=== PATIENT | female | born 1955 | race Caucasian/White ===

== ENCOUNTER 2018-03-16 06:26 | Observation (INO) ==
[2018-03-16] MEDS ORDERED: Lidocaine -MPF 1% 2 ML VIAL ID ONE (06:49)
[2018-03-16] MEDS ORDERED: Clindamycin 900 MG/50 ML 900 MG/50 ML IV.SOLN IVPB ONE ×2 (06:49→06:59)
[2018-03-16] MEDS ORDERED: Ringers Solution, Lactated 1,000 ML IVC SCH (07:00)
[2018-03-16] MEDS ORDERED: Famotidine 20 MG/2 ML VIAL IVP ONE (07:10)
[2018-03-16] MEDS ORDERED: Pregabalin 75 MG CAPSULE PO ONE (07:10)
[2018-03-16] MEDS ORDERED: Acetaminophen IV 1,000 MG/100 ML INFUS..BTL IVPB ONE ×4 (07:10→20:30)
[2018-03-16] MEDS ORDERED: Metoclopramide 10 MG/2 ML VIAL IVP ONE (07:10)
--- NOTE | 2018-03-16 07:13 | Anesthesia Evaluation PreOp ---
Date of Encounter: 03/16/18 Time of Encounter: 07:06 - Past History Planned Operation: Total Thyroidectomy Cardiac History: HTN, Hyperlipidemia Pulmonary History: Denies Any Significant HX [employer] History: TIA (dx 2018 maintained on Plavix) Other Medical History: Thyroid (Thyroid nodules by Thryoid U/S - Significant thyromegaly. There is diffuse heterogeneity of the gland. Bilateral solid thyroid nodules, the largest in the left lobe measuring 2.8 cm.), GERD (Hiatal Hernia) Anesthesia History: No Prior Anesthetic Complications, Past Anesthesia (Hyster, EGD/Colonoscopy) Alcohol Use: none Drug use: none Medications and Allergies Clopidogrel [Plavix] 75 mg PO DAILY 03/16/18 [History] Ezetimibe [Zetia] 10 mg PO DAILY 03/16/18 [History] 3 Allergy/AdvReac Type Severity Reaction Status Date / Time Tetracycline Allergy Rash Verified 02/15/18 00:06 niacin AdvReac Flushing Verified 02/15/18 00:06 - Meds/Allergy Pre-op Review Medications Reviewed: Yes Allergies Reviewed: Yes Beta Blockers on Current Med List: No Anesthesia Results - Labs O2 Sat Height 1.6 m Height 1.6 m Height 1.6 m Weight 92.079 kg Weight 92.079 kg Weight 92.079 kg O2 Sat by Pulse Oximetry 96 O2 Sat by Pulse Oximetry 96 Vital Signs Temp Pulse Resp BP Pulse Ox 98.1 F 76 18 139/88 96 03/16/18 06:47 03/16/18 06:47 03/16/18 06:47 03/16/18 06:47 03/16/18 06:47 - Imaging EKG: image reviewed (60bpm SINUS RHYTHM Electronically Signed On 03-15-2018 7:23: 36 EDT by Bryn Dickerson) Anesthesia Exam O2 Sat Height 1.6 m Height 1.6 m Height 1.6 m Weight 92.079 kg Weight 92.079 kg Weight 92.079 kg O2 Sat by Pulse Oximetry 96 O2 Sat by Pulse Oximetry 96 Vital Signs Temp Pulse Resp BP Pulse Ox 98.1 F 76 18 139/88 96 03/16/18 06:47 03/16/18 06:47 03/16/18 06:47 03/16/18 06:47 03/16/18 06:47 Height: 5'3" Weight: 203# BMI = 36 NPO (# of Hours): MNOc - HEENT Pupil (Motor): Pupils equal, EOMI Mallampati: II Teeth: Normal Oral Opening: Greater than 3 - [employer] LOC: Oriented [employer] Motor: Normal RUE, Normal LUE, Normal RLE, Normal LLE, Normal Face [employer] Sensory: Normal: RUE, LUE, RLE, LLE, Face - Cardiac Rhythm: Regular Murmur: None - Pulmonary Breath Sounds: bilateral Clear Respiratory Effort: Symmetrical Anesthesia Assess/Plan ASA Score: 3 (Thryoid nodules, HTN, Chol)
[2018-03-16] MEDS ORDERED: cloNIDine HCl 0.1 MG TABLET PO ONE (07:15)
[2018-03-16] MEDS ORDERED: *HR* Remifentanil 2 MG VIAL IVP ONE ×2 (07:16→10:28)
[2018-03-16] MEDS ORDERED: Bacitracin/PolymyxinB OINT 14.17 GM TUBE TP ONE (07:16)
[2018-03-16] MEDS ORDERED: Lidocaine/EPI 1:100k 1% 50 ML VIAL INFILT ONE (07:16)
[2018-03-16] MEDS ORDERED: *HR* FentaNYL (PF) 100 MCG/2 ML VIAL ONE (07:17)
[2018-03-16] MEDS ORDERED: *HR* Midazolam HCl 2 MG/2 ML VIAL ONE (07:17)
[2018-03-16] MEDS ORDERED: *HR* Propofol 200 MG/20 ML VIAL IVP ONE (07:17)
[2018-03-16] MEDS ORDERED: Lacri-Lube 3.5 GM TUBE ONE (07:19)
[2018-03-16] MEDS ORDERED: *HR* Succinylcholine 200 MG/10 ML VIAL IVP ONE (07:19)
[2018-03-16] MEDS ORDERED: Dexamethasone 4 MG/ML VIAL ONE ×2 (07:19→13:26)
[2018-03-16] MEDS ORDERED: Ondansetron 4 MG/2 ML VIAL ONE (07:19)
[2018-03-16] MEDS ORDERED: Lidocaine -MPF 2% 2 ML VIAL ONE (07:19)
[2018-03-16] MEDS ORDERED: Lidocaine -MPF 4% 5 ML AMPUL ONE (07:19)
[2018-03-16] MEDS ORDERED: *HR* Phenylephrine 10 MG/ML VIAL ONE (07:23)
--- NOTE | 2018-03-16 07:33 | History & Physical Report ---
Date of Encounter: 03/16/18 Time of Encounter: 07:30 24 Hour HP Update - Instructions Instructions: If the History and Physical is less than 30 days old and was completed prior to A.M. admission and or procedure and has NOT been updated on calendar day of procedure please complete this update prior to performing procedure. - Update Patient reports changes in Medical Condition: No Changes in examination, assessment, or condition: No Changes in Medication: No Preop tests/diagnostics Reviewed: Yes Pre-Op MRSA Screen: Negative Surgery Remains Indicated: Yes Consent for Planned Operative Procedure(s) Verified: Yes - Pre-Operative Checklist Preoperative Checklist Indicated: Yes Prophylactic Antibiotic Ordered: Yes Home Medications Include Beta Rox: No Beta Rox Taken Today (Day of Surgery): No Beta Rox Taken Yesterday (Day Prior to Surgery): No Is VTE Prophylaxis Indicated?: Yes
[2018-03-16] MEDS ORDERED: Ondansetron 4 MG/2 ML VIAL IVP ONE (09:39)
[2018-03-16] MEDS ORDERED: *HR* Morphine 2 MG/ML SYRINGE IVP PRN (09:39)
[2018-03-16] MEDS ORDERED: *HR* Labetalol 20 MG/4 ML SYRINGE IVP PRN (09:39)
[2018-03-16] MEDS ORDERED: *HR* Promethazine 25 MG/ML VIAL IVP PRN (09:39)
[2018-03-16] MEDS ORDERED: Albumin Human 5% 25.0 GM/500 ML VIAL ONE (10:55)
--- NOTE | 2018-03-16 12:37 | Operative Note ---
Date of procedure: 03/16/18 Pre-op diagnosis: Multinodular goiter Post-op diagnosis: same Procedure: Bilateral total thyroidectomy with cranial nerve monitoring of vocal cords First Asst. Berna Taveras, second assist Dr. Currie Complications: None Anesthesia: GETA Surgeon: Juan Orozco Was there an assignment desk assistant present: No Estimated blood loss (cc): 30 IV fluids (cc): 3,000 (2500 mL crystalloids and 500 mL colloid) Urine output (cc): 1,700 Specimen: Right and left thyroid lobes Condition: stable Disposition: PACU Procedure in Detail: After patient had been counseled for bilateral total thyroidectomy with risks of pain bleeding infection scar possible injury to laryngeal nerve possible injury to parathyroid glands were explained and all questions answered and consent was obtained patient was taken back to the operating room. In the operating room timeout was taken by the operating team confirmed patient at indication procedure and site per protocol. She was given medicines per anesthesiology. The IV Tylenol and Decadron and clindamycin were given prior to starting the incision general endotracheal anesthesia was administered by anesthesiology using the NIMM endotracheal tube. Grounding electrodes were placed within each shoulder in sterile fashion and the electrodes were connected to the NIMM monitoring system by the equipment dental sales representative. Proper monitoring of the vocal cords was confirmed. Shoulder roll was placed head of bed was elevated approximately 20 degrees and plan marking incision was made over the anterior neck approximately 3 fingerbreadths above the clavicles. This was slightly higher then the usual 2 fingerbreadths because of the large size of the thyroid gland measuring approximately 12 cm planned incision was 7 cm in length and was made within a natural skin crease. The skin of the neck was prepped with alcohol swabs and then the skin subcutaneous tissue and deeper tissue was injected with 1% Xylocaine with 1-200,000 epinephrine total of 15 mL was used. Patient was then prepped and draped in usual sterile fashion. Incision was made through the skin and subcutaneous tissue with a #15 scalpel and carried down through the subcutaneous tissue and platysma muscle layer with Bovie cautery obtaining hemostasis in the process. A subplatysmal flap was raised superiorly to the hyoid, inferiorly to the sternal notch and clavicles, laterally to the anterior border of the SCM muscle. Retracting sutures were used for the superior flap using 2-0 silk suture and fixing the sutured to the drapes with a hemostat. Remaining portion of retraction throughout the case was with [employer] retractors and other retractors. Strap muscles were then divided in midline with Bovie cautery and then strap muscles were dissected off the anterior thyroid gland on the left dissection then of the lateral superior and inferior poles was done with combination of blunt and sharp dissection. Bipolar cautery and Harmonic scalpel was used in the process also superior pole vessels were isolated and then tied with 2-0 silk suture and ligated with Harmonic scalpel inferior thyroid vessels were done in a similar fashion. The isthmus was then divided with Harmonic scalpel the thyroid gland was then mobilized on the left and retracted out of the depth of the surgical bed with blunt dissection and the recurrent laryngeal nerve was identified and isolated and traced into the larynx protecting the nerve through the process and identifying it with the NIMM stimulating probe. Bipolar cautery was used for hemostasis around the nerve. The parathyroid glands were also identified and retracted away from the gland preserving the vascularity. 2 of whom were isolated and had good color/vascularity after the retraction was complete thyroid gland was transected at Ankit's ligament and removed from the surgical bed. Marking stitch was placed in the isthmus and the gland was examined no parathyroid gland was noted to be within the dissected specimen that was to be handed off the field there were multiple nodules in the gland largest being and 3 cm. Size of gland after removal and devascularization was 12 cm x 7 cm x 7 cm specimen was handed off the field for permanent pathological evaluation. Wound was irrigated copiously with saline while protecting the nerve with 4 x 4 gauze applied over the nerve while this was being done is was also placed over the parathyroid glands. Valsalva confirmed hemostasis. Right lobe was then removed first dissecting the isthmus over from the trachea then dissecting the strap muscles off the anterior thyroid gland then dissected in the inferior superior and lateral lobes. Again blunt and sharp dissection and bipolar and Harmonic scalpel was used for hemostasis to the process of the inferior and superior thyroid vessels were isolated and tied with 2-0 silk suture, and ligated with Harmonic scalpel between the sutures. The right lobe was mobilized out of the surgical bed and the recurrent laryngeal nerve was found on the posterior aspect as well as parathyroid glands were dissected and preserved into the larynx leaving the parathyroid glands intact with good vascularity again two parathyroid glands were confirmed. , of note the entire procedure was done with loupe magnification glasses on the operating surgeon myself , the nerve was confirmed with use of the NIMM stimulating probe , the thyroid lobe was transected at the isthmus and removed from the surgical bed. The right lobe was ended off the field after examination revealed a 12 cm x 7 cm x 7 cm size with multiple large nodules and the isthmus was marked with a marking stitch. The surgical bed was then irrigated with saline using gauze to protect the nerve and parathyroid glands when suction was applied. Valsalva was given by anesthesia and hemostasis was confirmed. A #15 round Blakes VERÓNICA drain was placed into the surgical bed on both right and left sides through a separate stab incision and fixed to the skin with 3-0 silk suture. Gelfoam was placed over the nerve nerve and parathyroid glands on each side and then FloSeal applied within the surgical bed. Wound was closed in a layered fashion using 3-0 Vicryl running suture for the strap muscles in the midline and then 3- 0 Vicryl running suture for strap muscles and then interrupted 4-0 Vicryl undyed for the subcutaneous and 30 Quill suture used for the subcuticular stitch. Mastisol Steri-Strips were applied over the wound a sterile drain dressing was applied after Neosporin ointment applied on the exit site of drain and then a rolled towel gauze was used for covering the neck wound procedure being completed the patient was lightened from anesthesia and bilateral confirmation of vocal cord mobility was confirmed on theNIMM monitoring system and the patient was then completely extubated. Of note a Baxter was placed at the beginning of the case and UA with cultures were taken at time of placement given patient's history of multiple recurrent UTIs. Once the patient was extubated she was transferred to the PACU in stable condition with normal sounding voice noted in the PACU
[2018-03-16 13:01] LABS: Hematocrit 41.3 % (35.3-44.9); Hemoglobin 13.5 g/dL (11.5-15.4)
[2018-03-16] MEDS ORDERED: Acetaminophen IV 1,000 MG/100 ML INFUS..BTL ONE (13:26)
[2018-03-16] MEDS ORDERED: Dexamethasone 4 MG/ML VIAL IVP ONE (13:28)
[2018-03-16 13:41] LABS: Albumin 4.4 g/dL (3.5-5.7); Albumin/Globulin Ratio 1.8 (1.1-2.2); Calcium 9.2 mg/dL (8.6-10.3); Globulin 2.5 g/dL (2.4-3.5); Phosphorous 2.8 mg/dL (2.7-4.5); Total Protein 6.9 g/dL (6.4-8.9)
--- NOTE | 2018-03-16 14:10 | Anesthesia Evaluation Post Op ---
Date of Encounter: 03/16/18 Time of Encounter: 14:09 - Vital Signs Vital Signs: Last Vital Signs Temp 99.1 F 03/16/18 14:00 Pulse 72 03/16/18 14:00 Resp 14 03/16/18 14:00 BP 137/85 03/16/18 14:00 Pulse Ox 97 03/16/18 14:00 - Lungs Lungs: Clear Ascult./Percussion - Airway Airway: Non-obstructed - Cardiovascular Regular Rate - Mental Status Mental Status: Alert & Oriented, Answers Appropriately - Pain Pain Scale: 1 - Nausea Vomiting Nausea Vomiting: Responds to treatment with IV Meds - Hydration Hydration: Ice chips - Discharge PostOp Status: Transfer Patient to floor
[2018-03-16] MEDS ORDERED: Naloxone 0.4 MG/ML INJ IVP PRN (14:43)
[2018-03-16] MEDS ORDERED: Ondansetron 4 MG/2 ML VIAL IVP PRN (14:43)
[2018-03-16] MEDS ORDERED: *HR* OxyCODONE Immed Rel 5 MG TABLET PO PRN ×2 (14:43)
[2018-03-16] MEDS: Dexamethasone 10 MG/ML VIAL IVP SCH ×2 (15:40→22:01)
[2018-03-16] MEDS: D5% in 0.45% NACL 1,000 ML IVC SCH (15:45)
[2018-03-16] MEDS: Clindamycin 600 MG/50 ML 600 MG/50 ML IV.SOLN IVPB SCH ×2 (15:46→23:36)
[2018-03-16 18:19] LABS: Hematocrit 40.2 % (35.3-44.9); Hemoglobin 13.2 g/dL (11.5-15.4)
[2018-03-16 18:41] LABS: Albumin 4.3 g/dL (3.5-5.7); Magnesium 2.1 mg/dL (1.6-2.6)
[2018-03-16 18:42] LABS: Phosphorous 3.2 mg/dL (2.7-4.5); Total Protein 6.9 g/dL (6.4-8.9)
[2018-03-17] MEDS: D5% in 0.45% NACL 1,000 ML IVC SCH (05:48)
[2018-03-17] MEDS: Dexamethasone 10 MG/ML VIAL IVP SCH ×2 (05:48→16:36)
[2018-03-17 06:09] LABS: Hematocrit 39.4 % (35.3-44.9); Hemoglobin 12.9 g/dL (11.5-15.4)
[2018-03-17 06:30] LABS: Albumin 4.1 g/dL (3.5-5.7); Albumin/Globulin Ratio 1.7 (1.1-2.2); Calcium 8.9 mg/dL (8.6-10.3); Globulin 2.4 g/dL (2.4-3.5); Magnesium 2.2 mg/dL (1.6-2.6); Phosphorous 3.4 mg/dL (2.7-4.5); Total Protein 6.5 g/dL (6.4-8.9)
[2018-03-17] MEDS: Clindamycin 600 MG/50 ML 600 MG/50 ML IV.SOLN IVPB SCH ×2 (08:43→16:36)
--- NOTE | 2018-03-17 12:24 | ENT - Progress Note ---
Date of Encounter: 03/17/18 Time of Encounter: 07:15 - Assessment and Plan (1) Multinodular goiter Current Visit: Yes Status: Acute Patient is doing well status post bilateral total thyroidectomies for symptomatic multinodular goiter. He has minimal postop surgical pain. Has minimal laryngeal vocal cord irritation from endotracheal tube responding well to Cepacol and Tylenol we will change her over to oral Tylenol 1 g every 6 hours. The drain will stay in place and is functioning well there is no swelling in the neck plan will be to remove later this day if amount decreases to 10-20 mL an 8 hour shift and converts to his serous sanguinous lower we will hold the Plavix at this time and DC the methimazole and start levothyroxin/ Synthroid 125 g daily. Her calcium mag phosphorus parathyroid hormones all been stable therefore need no further laboratory workup on this. Hematocrit have been stable also no need to follow this any further. We will continue ambulating progressively and diet progression, continue incentive spirometry and deep breathing. Patient should do well today and possibly discharge this evening or tomorrow morning Subjective Patient reports: no new complaints, feels better, pain is less, tolerating liquids well, voiding w/o difficulty, flatus, other (Patient is status post bilateral total thyroidectomy is doing well. Pain is minimal and is controlled with Tylenol she has received IV Tylenol 1 g every 6 hours. She has no complaints of nausea vomiting and desires to eat breakfast and has tolerated by mouth liquids. She is ambulating and voiding and using the incentive spirometry. She has no complaints of shortness of breath or wheezing or stridor tightness. She is minimal throat soreness not neck) Objective Initial Vital Signs Temp Pulse Resp BP Pulse Ox 98.1 F 76 18 139/88 96 03/16/18 06:47 03/16/18 06:47 03/16/18 06:47 03/16/18 06:47 03/16/18 06:47 - General physical appearance well developed, well nourished, no distress, other (Normal sounding voice except for slight raspiness from slight vocal cord irritation of endotracheal tube and) - Eyes PERRL, normal ocular movement - ENT normal pinna, normal nares, normal mucosa, no congestion - Neck trachea midline, other (Status post bilateral total thyroidectomies without fullness in the neck minimal tenderness with touch incision line is intact VERÓNICA drain draining mainly sanguinous fluid was over 35 mL in the past shift) - Respiratory normal expansion, normal respiratory effort - Integumentary no rash - Neurologic CN 2-12 grossly intact, normal coordination, normal sensation - Musculoskeletal normal posture - Psychiatric oriented to time, oriented to person, oriented to place, speech is normal, memory intact - Labs 03/17/18 05:57 Diabetes panel 03/16/18 03/16/18 03/17/18 Range/Units 12:40 18:07 05:57 Calcium 9.2 9.0 8.9 (8.6-10.3) mg/dL Albumin 4.4 4.3 4.1 (3.5-5.7) g/dL Calcium panel 03/16/18 03/16/18 03/16/18 Range/Units 12:40 18:07 18:07 Calcium 9.2 9.0 (8.6-10.3) mg/dL Phosphorus 2.8 3.2 (2.7-4.5) mg/dL Albumin 4.4 4.3 (3.5-5.7) g/dL 03/17/18 Range/Units 05:57 Calcium 8.9 (8.6-10.3) mg/dL Phosphorus 3.4 (2.7-4.5) mg/dL Albumin 4.1 (3.5-5.7) g/dL Pituitary panel 03/16/18 03/16/18 03/17/18 Range/Units 12:40 18:07 05:57 Calcium 9.2 9.0 8.9 (8.6-10.3) mg/dL Adrenal panel 03/16/18 03/16/18 03/17/18 Range/Units 12:40 18:07 05:57 Calcium 9.2 9.0 8.9 (8.6-10.3) mg/dL Albumin 4.4 4.3 4.1 (3.5-5.7) g/dL - VTE Documentation of Mechanical Device: Intermittent pneumatic compression device Consult Discharge Plan - Plan Referrals: Ankur Galo DO [Partnered Physician] - 03/23/18 11:45 am
[2018-03-18] MEDS: Dexamethasone 10 MG/ML VIAL IVP SCH ×2 (00:26→06:13)
[2018-03-18] MEDS: Clindamycin 600 MG/50 ML 600 MG/50 ML IV.SOLN IVPB SCH ×2 (00:34→08:24)
[2018-03-18 08:54] VITALS: BP 140/74
--- NOTE | 2018-03-18 08:54 | Discharge Summary ---
Orders not resulted at time of discharge: Pending orders 03/16/18 11:58 Surgical Pathology [PTH] Routine Date of Encounter: 03/18/18 Time of Encounter: 09:00 - Discharge Diagnosis (1) Multinodular goiter Priority: Primary Status: Acute - Hospital Course Hospital course: Ms. Villareal is a 62 year old female Ms. Villareal underwent a bilateral total thyroidectomy on 16 march without complications. She was discharged to the PACU and then floor for observation and did well. VERÓNICA drain was removed a.m. of 18 march less than 20 mL drainage over 24 hours of serosanguineous fluid noted. She did well after drain was removed. Her calcium mag phosphorus and parathyroid hormone levels were monitored throughout her postoperative course and was stable calcium was 8.9 PTH was 42.5 and hematocrit was stable at 39.4. She had a urinalysis and cultures done at time of Baxter insertion because of history of recurrent UTIs. Final results was negative. She was started on Synthroid 125 g daily. She was covered with IV clindamycin and IV Tylenol or drain was in and did well. Pain was well- controlled with Tylenol. She was afebrile with stable vital signs. She will be discharged on the Synthroid 125 g daily she is to discontinue methimazole and restart her Plavix on March 21Tuesday and she has follow-up on March [address] Reeves. Pathology pending at this time but initial verbal report with pathologist was benign multinodular goiter. She will need her thyroid functions tested and about 6-8 weeks postoperatively and adjust the oral Synthroid as needed. - Time Spent with Patient Total time spent providing and/or coordinating discharge services: Greater than 30 minutes Specific discharge activities: May resume light activities no strenuous lifting stooping or exercising for 3 weeks. No driving car for 1 week. May change drain dressing gauze as needed. Once it has stopped drainage may apply Neosporin ointment 3 times a day for a week. May apply Neosporin ointment to incision line 3 times a day for a week also. Keep wound dry for 72 hours. Follow-up on 2017 at 1145. Do not take Plavix until Tuesday. Discontinue the methimazole now. Start levothyroxine tomorrow morning and continue daily every morning 1 tab. Date of admission: 03/16/18 14:41 Primary care physician: Marco Sanchez MD Discharging clinician: Juan Orozco Anticipated date of discharge: 03/18/18 - Discharge Medications Prescriptions: Levothyroxine [Synthroid] 125 mcg PO 0630 #30 tablet Home Medications: Ezetimibe [Zetia] 10 mg PO DAILY 03/16/18 [History] raNITIdine HCl [Ranitidine HCl] 150 mg PO BID 03/17/18 [History] Acetaminophen [Tylenol] 1,000 mg PO Q6HR tablet 03/18/18 [Rx] Benzocaine/Menthol Akila [Cepacol Sore Throat Lozenge] 1 each MM Q2H PRN lozenge 03/18/18 [Rx] Clopidogrel [Plavix] 75 mg PO DAILY #0 03/18/18 [Rx] Levothyroxine [Synthroid] 125 mcg PO 0630 #30 tablet 03/18/18 [Rx] Ondansetron [Zofran] 4 mg IVP Q6HR PRN vial 03/18/18 [Rx] Allergies/Adverse Reactions: 3 Allergy/AdvReac Type Severity Reaction Status Date / Time Tetracycline Allergy Rash Verified 03/17/18 10:59 niacin AdvReac Flushing Verified 03/17/18 10:59 ENT Exam Initial Vital Signs Temp Pulse Resp BP Pulse Ox 98.1 F 76 18 139/88 96 03/16/18 06:47 03/16/18 06:47 03/16/18 06:47 03/16/18 06:47 03/16/18 06:47 - General physical appearance well developed, well nourished, no distress, other (Normal sounding voice no hoarseness no stridor, minimal pain well controlled with Tylenol and Cepacol lozenges) - Eyes PERRL, normal ocular movement - ENT normal pinna, normal nares, normal mucosa, no hearing loss, no congestion, CN 2- 12 grossly intact - Neck trachea midline, no lymphadectomy, other (VERÓNICA drainage less than 20 mL of serosanguineous fluid without neck swelling. VERÓNICA drain was removed today without complication. There is no drainage noticed from the drain site once removed. Neosporin ointment and 2 x 2 gauze applied over this) - Respiratory normal expansion, normal respiratory effort, clear to percussion - Abdomen Abdomen: soft, non tender, bowel sounds (Present and patient passing gas without difficulties) - Integumentary no rash - Neurologic CN 2-12 grossly intact, normal coordination, normal sensation - Musculoskeletal normal gait, normal posture - Psychiatric oriented to time, oriented to person, oriented to place, speech is normal, memory intact - Patient Status Disposition: Home, Self-Care Condition: Good Functional capacity at discharge: independent ambulation Overall status at discharge: patient is back to baseline - Discharge Instructions Follow Up With: Ankur Galo DO [Partnered Physician] - 03/23/18 11:45 am - Diet and Activity Activity: increase activity as tolerated, return to work once cleared by your PCP/specialist Diet: advance to your usual diet - VTE Documentation of Mechanical Device: Intermittent pneumatic compression device
== END 2018-03-18 13:32 | disposition home or self-care (01) ==
LOC: SAMDAY 06:26 → 3ANU 06:26

== ENCOUNTER 2020-08-14 11:02 | Observation (INO) ==
[2020-08-14] MEDS ORDERED: Isovue-370 500 ML BOTTLE IVP ONE (11:36)
[2020-08-14 12:00] LABS: Hematocrit 43.9 % (35.3-44.9); Hemoglobin 14.2 g/dL (11.5-15.4); Mean Corpuscular HGB Conc 32.3 g/dL (31.6-35.5); Mean Corpuscular Hemoglobin 29.2 pg (28.0-33.3); Mean Corpuscular Volume 90.1 fL (83.0-100.0); Platelet Count 228 K/mcL (140-400); Red Blood Count 4.87 M/mcL (3.82-4.97); Red Cell Distribution Width 12.7 % (11.5-14.5); White Blood Count 5.8 K/mcL (4.3-11.1)
[2020-08-14 12:14] LABS: BUN/Creatinine Ratio 15 (6-26); Blood Urea Nitrogen 9 mg/dL (8-23); Carbon Dioxide 27 mEq/L (23-29); Chloride 100 mEq/L (98-107); Glucose 94 mg/dL (70-105); Osmolality,Calculated 278 (280-300); Sodium 135 mEq/L (136-145); eGFR For African Americans > 60 (> 60); eGFR For Non-African Americans > 60 (> 60)
[2020-08-14 12:21] LABS: Troponin I < 0.03 ng/mL (< 0.04)
[2020-08-14 12:28] LABS: Bilirubin,Urine Negative (Negative); Blood,Urine Trace (Negative); Clarity,Urine Clear (Clear); Color,Urine Colorless (Yellow); Glucose,Urine (UA) Normal (Normal); Ketones,Urine Negative (Negative); Leukocyte Esterase,Urine Negative (Negative); Nitrite,Urine Negative (Negative); PH,Urine 6.5 pH Units (5.0-8.0); Protein,Urine Negative (Neg-Trace); RBC,Urine 0-3 per hpf (0-3); Specific Gravity,Urine < 1.005 (1.010-1.025); Squamous Epithelial Cell,Urine Few per hpf (None-Few); Urobilinogen,Urine Normal (Normal); WBC,Urine 0-3 per hpf (0-3)
[2020-08-14] MEDS ORDERED: Acetaminophen 325 MG TABLET PO PRN (14:40)
[2020-08-14] MEDS ORDERED: Naloxone 0.4 MG/ML INJ IVP PRN (14:40)
[2020-08-14] MEDS ORDERED: Ondansetron 4 MG/2 ML VIAL IVP PRN (14:40)
[2020-08-14] MEDS ORDERED: *HR* LORazepam 1 MG TABLET PO PRN (14:44)
[2020-08-14] MEDS ORDERED: Perflutren Lipid Microsphere 1.3 ML in 0.9 % Sodium Chloride 8.7 ML IVP PRN (14:44)
[2020-08-14 14:49] LABS: Amphetamine Screen,Urine Negative ng/mL (Cutoff=1000); Barbiturate Screen,Urine Negative ng/mL (Cutoff=200); Benzodiazepines Screen,Urine Negative ng/mL (Cutoff=200); Cannabinoid Screen,Urine Negative ng/mL (Cutoff = 50); Cocaine Screen,Urine Negative ng/mL (Cutoff= 300); Opiate Screen,Urine Negative ng/mL (Cutoff=300); Phencyclidine Screen,Urine Negative ng/mL (Cutoff=25)
[2020-08-15 01:47] LABS: Basophils # 0.1 K/mcL (0.0-0.2); Basophils % 1.1 %; Eosinophils # 0.1 K/mcL (0.0-0.6); Eosinophils % 1.9 %; Hematocrit 44.4 % (35.3-44.9); Immature Granulocytes % 0.1 % (0-4); Lymphocytes # 3.1 K/mcL (0.6-4.6); Lymphocytes % 41.9 %; Mean Corpuscular HGB Conc 31.5 g/dL (31.6-35.5); Mean Corpuscular Hemoglobin 28.3 pg (28.0-33.3); Mean Corpuscular Volume 89.7 fL (83.0-100.0); Mean Platelet Volume 9.9 fL (9.4-12.4); Monocytes # 0.8 K/mcL (0.0-1.3); Neutrophils # 3.2 K/mcL (1.6-8.9); Platelet Count 244 K/mcL (140-400); Red Blood Count 4.95 M/mcL (3.82-4.97); Red Cell Distribution Width 12.9 % (11.5-14.5); White Blood Count 7.4 K/mcL (4.3-11.1)
[2020-08-15 02:07] LABS: BUN/Creatinine Ratio 16 (6-26); Blood Urea Nitrogen 9 mg/dL (8-23); Calcium 9.1 mg/dL (8.6-10.3); Carbon Dioxide 26 mEq/L (23-29); Chloride 105 mEq/L (98-107); Chol/HDL Ratio 3.4 (0-4.9); Cholesterol 131 mg/dL (< 200); Glucose 91 mg/dL (70-105); HDL Cholesterol 38 mg/dL (40-59); LDL Cholesterol,Calculated 78 mg/dL (< 100); Magnesium 2.2 mg/dL (1.6-2.6); Osmolality,Calculated 288 (280-300); Potassium 3.6 mEq/L (3.5-5.1); Sodium 140 mEq/L (136-145); Triglycerides 75 mg/dL (< 150); eGFR For African Americans > 60 (> 60); eGFR For Non-African Americans > 60 (> 60)
[2020-08-15 08:06] LABS: Estimated Average Glucose 120 mg/dl
[2020-08-15 10:43] VITALS: BP 107/72
[2020-08-15] MEDS ORDERED: NON-FORMULARY MEDICATION 1 EACH EACH (Ezetimibe [Zetia] 10 MG) PO SCH (11:15)
[2020-08-15] MEDS ORDERED: lisinopriL 10 MG TABLET PO SCH (11:15)
[2020-08-15 15:30] LABS: Folate > 22.3 ng/mL (3.0-16.0); Vitamin B12 363 pg/mL (250-1100)
== END 2020-08-15 16:23 | disposition home or self-care (01) ==
LOC: EMEROOARM 11:02 → 3BNU 11:02 → SUATTDRO 14:21 → 3BNU 15:43
PROVIDERS: ADMIT Internal Medicine; ATTEND Internal Medicine